=== PATIENT | female | born 1985 ===

== ENCOUNTER 2018-08-05 09:18 | Day surgery (SDC) | payer OTHER ==
[2018-08-01 09:10] VITALS: BMI 25.7
[2018-08-05] MEDS ORDERED: ceFAZolin 1 gm in NS 2 GM/200 ML BAG IVPB ONE (11:00)
[2018-08-05] MEDS ORDERED: Propofol 10 mg/ml Inj (20 ML) ONE (11:01)
[2018-08-05] MEDS ORDERED: Midazolam 2 MG/2 ML VIAL ONE (11:01)
[2018-08-05] MEDS ORDERED: Bupivacaine 0.25% 20 ML INJ IJ ONE (11:13)
[2018-08-05] MEDS ORDERED: Lidocaine/Epinephrine 1% 1:100000 10 ML IJ ONE (11:13)
[2018-08-05] MEDS ORDERED: Bupivacaine Liposomal Inj 20 ml INFIL ONE (12:15)
[2018-08-05] MEDS ORDERED: Sodium Chloride 0.9% 40 ML IV ONE (12:20)
[2018-08-05] MEDS ORDERED: Morphine 4 MG/ML VIAL ONE (12:50)
--- NOTE | 2018-08-05 13:00 | PCM.SURG1 ---
Surgeon's Initial Post Op Note - Surgeon's Notes Surgeon: MD Ashley Hydraulic Assembler: Inge PGY3. 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
[2018-08-05] MEDS: HYDROmorphone 0.5 mg/0.5 ml ISec IVP PRN ×2 (13:12→13:42)
[2018-08-05] MEDS ORDERED: HYDROmorphone 0.5 mg/0.5 ml ISec ONE (13:16)
[2018-08-05] MEDS ORDERED: Lactated Ringer's 500 ML IV ONE (14:50)
[2018-08-05 16:19] VITALS: BP 100/60; PULSE 66; RESP 18; TEMP 98; O2SAT 98
--- NOTE | 2018-08-07 13:36 | OP ---
PROCEDURE DATE: 08/05/2018 PREOPERATIVE DIAGNOSES: Chronic cholecystitis and cholelithiasis. POSTOPERATIVE DIAGNOSES: Chronic cholecystitis and cholelithiasis. PROCEDURES DONE: 1. Robotic cholecystectomy. 2. Laparoscopic bilateral transversus abdominis plane block placement. SURGEON: Glenn Ramirez MD ASSISTANTS: DULCE MARIA Cornelius and Mathew Alcazar, PGY-3 Resident. ANESTHESIA: General endotracheal tube anesthesia. ESTIMATED BLOOD LOSS: Around 10 mL. DRAINS: None. PATHOLOGY: Gallbladder with gallstone was sent for pathology. COMPLICATIONS: None. INTRAOPERATIVE FINDINGS: The patient had changes of chronic cholecystitis and cholelithiasis. DESCRIPTION OF PROCEDURE: On intraoperative steps, this is a 32-year-old female who was diagnosed with chronic cholecystitis and cholelithiasis, and the patient was consented for the robotic cholecystectomy, possible open, brought to the OR, placed supine on the operating table. After induction of the anesthesia, the abdomen was prepped and draped in usual sterile fashion. A supraumbilical transverse incision was made using open technique. Peritoneal cavity was entered, pneumo was created. Another 3.8 mm port was placed in upper abdomen. Robot was brought in. Camera arm as well as arm 1 and arm 2 were docked and the gallbladder was retracted cranially. Calot's triangle dissection was done. Cystic duct and cystic artery was identified and intraoperative Firefly was used. Drop-down approach was done and the critical view of the safety was identified and the gallbladder was dissected from the gallbladder fossa. The cystic duct and cystic artery was clipped at three places and cut in between two clips nearby gallbladder. Now, the complete dissection of the gallbladder from the gallbladder fossa was done and proper hemostasis was achieved in each and every part of the procedure. The gallbladder was taken out from the umbilical port site and sent off the table for the pathology. Now, laparoscopically, bilateral TAP block was given. The 30:30 mL of Exparel with Decadron was injected in the transverse abdominis muscles plane area and after proper TAP block bilaterally, all the ports were taken out under vision, pneumo was deflated. Umbilical port site was closed in 2 layers. The fascia with 0 Vicryl interrupted suture and skin with 4-0 Monocryl and dry sterile dressing was applied. The patient tolerated the procedure well. Count of instrument and gauze was correct. There were no apparent complications. The patient was extubated in OR and sent to the postanesthesia care unit in stable condition. Glenn Ramirez MD
== END 2018-08-05 16:24 | disposition home or self-care (01) ==
LOC: C.SDS 09:18
PROVIDERS: ATTEND Surgery Surgical Critical Care
DX: K80.10 Calculus of gallbladder with chronic cholecystitis without obstruction (principal)
CPT/HCPCS: 47562; 88304; J0690; J1100; J1170; J2250; J2270; J2405; J2704; J3010; J7030; J7120